=== PATIENT | male | born 1955 | race Caucasian/White ===

== ENCOUNTER 2020-10-22 07:00 | Emergency (ER) | payer BC ==
[2020-10-22 08:40] LABS: BUN/CREATININE RATIO 19 (0-10)
[2020-10-22 09:09] LABS: RED BLOOD COUNT 5.2 M/UL (4.20-5.50)
[2020-10-22 09:34] LABS: WHITE BLOOD COUNT 3.3 K/UL (4.5-11.0)
[2020-10-22] MEDS ORDERED: ZITHROMAX250 MG PO (10:29)
[2020-10-22] MEDS ORDERED: OMNICEF 300 MG300 MG PO (10:29)
== END 2020-10-22 10:49 | disposition home or self-care (01) ==
LOC: ER1 07:00
PROVIDERS: Family Medicine
DX: J69.0 Pneumonitis due to inhalation of food and vomit (principal); D69.6 Thrombocytopenia, unspecified; E11.9 Type 2 diabetes mellitus without complications; I10 Essential (primary) hypertension; F17.200 Nicotine dependence, unspecified, uncomplicated; Z20.822 Contact with and (suspected) exposure to COVID-19
CPT/HCPCS: 0240U; 71046; 80053; 82550; 82553; 83605; 84484; 85025; 87040; 94664; 96374; 99284; J0696

== ENCOUNTER → 2021-02-22 | Outpatient (CLI) | payer BC ==
[~2021-02-22] MED LIST: OMNICEF 300 MG300 MG PO; ZITHROMAX250 MG PO
[2021-02-22 07:12] LABS: HEMOGLOBIN 16.8 gm/dl (14.0-17.5); RED BLOOD COUNT 5.18 M/UL (4.20-5.50); WHITE BLOOD COUNT 8.7 K/UL (4.5-11.0)
[2021-02-22 07:36] LABS: BUN/CREATININE RATIO 23 (0-10)
[2021-02-23 08:09] LABS: PROSTATE SPECIFIC AG, SERUM 0.7 ng/mL (0.0-4.0); VITAMIN D, 25-HYDROXY 90.6 ng/mL (30.0-100.0)
== END ==
LOC: LAB 06:06
PROVIDERS: Nurse Practitioner Family
DX: E11.9 Type 2 diabetes mellitus without complications (principal); E78.5 Hyperlipidemia, unspecified; I10 Essential (primary) hypertension; E55.9 Vitamin D deficiency, unspecified
CPT/HCPCS: 71046; 80053; 80061; 82570; 82607; 84153; 84154; 84156; 84439; 84443; 85025

== ENCOUNTER → 2021-10-11 | Outpatient (CLI) | payer BC ==
[2021-10-11 07:38] LABS: HEMOGLOBIN 15.1 gm/dl (14.0-17.5); RED BLOOD COUNT 4.88 M/UL (4.20-5.50); WHITE BLOOD COUNT 7.7 K/UL (4.5-11.0)
[2021-10-11 07:50] LABS: BUN/CREATININE RATIO 20 (0-10)
[2021-10-12 08:09] LABS: ANTISTREPTOLYSIN O AB 131.4 IU/mL (0.0-200.0); RHEUMATOID ARTHRITIS FACTOR <10.0 IU/mL (<14.0)
[2021-10-12 09:09] LABS: VITAMIN D, 25-HYDROXY 45.4 ng/mL (30.0-100.0)
== END ==
LOC: LAB 06:49
PROVIDERS: Nurse Practitioner Family
DX: Z00.00 Encounter for general adult medical examination without abnormal findings (principal); Z12.5 Encounter for screening for malignant neoplasm of prostate; E11.9 Type 2 diabetes mellitus without complications; M25.50 Pain in unspecified joint; R53.83 Other fatigue; E78.00 Pure hypercholesterolemia, unspecified; E78.5 Hyperlipidemia, unspecified
CPT/HCPCS: 36415; 80053; 80061; 81001; 82043; 82570; 82607; 83036; 84153; 84439; 84443; 84550; 85025; 85652; 86038; 86060; 86140; 86141; 86431

== ENCOUNTER → 2021-10-20 | Outpatient (CLI) | payer BC | LOC: EXRD 11:52 | DX: R06.02 Shortness of breath (principal); Z72.0 Tobacco use | CPT/HCPCS: 94060; 94729 ==

== ENCOUNTER → 2021-10-22 | Outpatient (CLI) | payer BC | LOC: NM 10-21 09:00 | DX: R06.02 Shortness of breath (principal); R68.89 Other general symptoms and signs; Z91.89 Other specified personal risk factors, not elsewhere classified; I51.89 Other ill-defined heart diseases | CPT/HCPCS: ECHO; 78452; 93017; 93306; A9502 ==

== ENCOUNTER → 2022-01-10 | Outpatient (CLI) | payer BC ==
[2022-01-10 06:29] LABS: HEMOGLOBIN 15.3 gm/dl (14.0-17.5); RED BLOOD COUNT 4.83 M/UL (4.20-5.50); WHITE BLOOD COUNT 8.3 K/UL (4.5-11.0)
[2022-01-10 07:05] LABS: BUN/CREATININE RATIO 20 (0-10)
[2022-01-11 09:10] LABS: CREATININE, URINE 77.9 mg/dL (Not Estab.)
== END ==
LOC: LAB 05:47
PROVIDERS: Nurse Practitioner Family
DX: I10 Essential (primary) hypertension (principal); R53.83 Other fatigue; E78.00 Pure hypercholesterolemia, unspecified; E53.8 Deficiency of other specified B group vitamins; E55.9 Vitamin D deficiency, unspecified; E11.9 Type 2 diabetes mellitus without complications
CPT/HCPCS: 36415; 80053; 80061; 82043; 82570; 82607; 83036; 84439; 84443; 85025

== ENCOUNTER → 2022-01-26 | Outpatient (CLI) | payer BC ==
[~2022-01-26] VITALS: Ht 182.9 cm; Wt 88.5 kg
[~2022-01-26] MED LIST changes: +AMLODIPINE BESY10 MG PO; +COMBIGAN EYE DRO5 ML EYELF; +CYANOCOBAL1000 MCG/1 INJ; +FENOFIBRATE48 MG PO; +JARDIANCE10 MG PO; +METFORMIN HCL1000 M1 PO; +MONTELUKAST SOD10 MG PO; +MOUNJARO2.5 MG/0.5 SQ; +VALSARTAN-HCTZ1 EAC3 PO; +VITAMIN D21250 MCG PO
== END ==
LOC: CATH 06:55
DX: I20.8 Other forms of angina pectoris (principal); E11.9 Type 2 diabetes mellitus without complications; I10 Essential (primary) hypertension; E78.5 Hyperlipidemia, unspecified; R94.39 Abnormal result of other cardiovascular function study; J44.9 Chronic obstructive pulmonary disease, unspecified; I48.91 Unspecified atrial fibrillation; F17.210 Nicotine dependence, cigarettes, uncomplicated
CPT/HCPCS: 82962; 85610; 85730; 99152; 99153; C1769; J1644; J2250; J3010; J7040; Q9967